=== PATIENT | male | born 1960 | race Caucasian/White ===

== ENCOUNTER → 2017-03-03 | Outpatient (CLI) | payer BC ==
--- NOTE | 2017-03-03 13:49 | PCVCIMAG ---
APPROVED REPORT Exam: Stress Echocardiogram Indication: Hypertension, ABN CA Score, DM, Chest Pressure Stress Nurse: Joann Landers RN Status: routine Ht: 6 ft 6 in HR: 90 bpm BP: 124/74 mmHg Procedure The patient underwent an Exercise Stress Test using the Francis Protocol. Blood pressure, heart rate, and EKG were monitored. An Echocardiogram was performed by physical science technician in four stages in quad fashion. At peak stress, four selected images were obtained and placed side by side with resting images for comparison. Stress Test Details Stress Test: Exercise stress testing was performed using a Francis protocol. HR Resting HR: 90 bpmMax Heart Rate (APMHR): 166 bpm Max HR Achieved: 166 bpmTarget HR (85% APMHR): 141 bpm % of APMHR: 100 HR response to stress: Normal HR response to stress BP Resting BP: 124/74 mmHg Max BP: 202/84 mmHg ECG Resting ECG: Sinus Rhythm Clinical Reason for Termination: Maximal effort Exercise duration: 12 min 0 sec Highest Stage Achieved: Stage 5: 5.0 mph at 18% grade. Exercise capacity: 13.70 METs Overall Exercise Capacity for Age: Normal Pre-Stress Echo The resting Echocardiogram showed normal left ventricular contractility with an estimated Ejection Fraction of about 55-60%. Normal wall motion in all segments on baseline images. Post-Stress Echo The stress Echocardiogram showed normal left ventricular contractility with an estimated Ejection Fraction of about 60-65%. Normal augmentation of wall motion in all segments on post stress images. Clinical No clinical or ECG evidence for ischemia. Conclusion Clinical Response: Non-ischemic Exercise Capacity: Average Stress ECG Response: Non-ischemic Stress Echo Images: Non-ischemic The left ventricle is normal in size and wall thickness in both the rest and stress images. Other Information Study Quality: Adequate <Conclusion> The left ventricle is normal in size and wall thickness in both the rest and stress images.
== END | disposition home or self-care (01) ==
LOC: PCVCIMAG 11:08
PROVIDERS: ATTEND Internal Medicine Cardiovascular Disease
DX: I25.10 Atherosclerotic heart disease of native coronary artery without angina pectoris (principal); I10 Essential (primary) hypertension; R93.1 Abnormal findings on diagnostic imaging of heart and coronary circulation; E11.9 Type 2 diabetes mellitus without complications; E78.00 Pure hypercholesterolemia, unspecified; Z82.49 Family history of ischemic heart disease and other diseases of the circulatory system; Z79.82 Long term (current) use of aspirin
CPT/HCPCS: 93325; 93351

== ENCOUNTER → 2019-04-04 | Outpatient (CLI) | payer BC ==
--- NOTE | 2019-04-04 16:49 | PCVCIMAG ---
APPROVED REPORT Study performed: 04/04/2019 16:01:23 Exam: Stress Echocardiogram Indication: Hypertension, Hyperlipidemia Patient Location: Echo lab Stress Nurse: Wanda Crouch RN Status: routine Ht: 5 ft 8 in HR: 86 bpm BP: 150/88 mmHg Rhythm: NSR Medical History Medical History: Hyperlipidemia, HTN Procedure The patient underwent an Exercise Stress Test using the Francis Protocol. Blood pressure, heart rate, and EKG were monitored. An Echocardiogram was performed by lead slot technician in four stages in quad fashion. At peak stress, four selected images were obtained and placed side by side with resting images for comparison. Stress Test Details Stress Test: Exercise stress testing was performed using a Francis protocol. HR Resting HR: 86 bpmMax Heart Rate (APMHR): 164 bpm Max HR Achieved: 162 bpmTarget HR (85% APMHR): 139 bpm % of APMHR: 98 Recovery HR: 101 bpm HR response to stress: Normal HR response to stress BP Resting BP: 150/88 mmHg Max BP: 162/78 mmHg Recovery BP: 156/76 mmHg BP response to stress: Normal blood pressure response to stress. ECG Resting ECG: Sinus Rhythm Stress ECG: Sinus Rhythm Arrhythmia: VPC's Recovery ECG: Sinus Rhythm Clinical Reason for Termination: Maximal effort Exercise duration: 11 min sec Highest Stage Achieved: Stage 3: 3.4 mph at 14% grade. Exercise capacity: 13.70 METs Overall Exercise Capacity for Age: Normal Pre-Stress Echo The resting Echocardiogram showed normal left ventricular contractility with an estimated Ejection Fraction of about 55-60%. Normal wall motion in all segments on baseline images. Post-Stress Echo The stress Echocardiogram showed normal left ventricular contractility with an estimated Ejection Fraction of about 60-65%. Normal augmentation of wall motion in all segments on post stress images. Clinical No clinical or ECG evidence for ischemia. Conclusion Clinical Response: Non-ischemic Exercise Capacity: Superior Stress ECG Response: Non-ischemic Stress Echo Images: Non-ischemic The left ventricle is normal in size and wall thickness in both the rest and stress images. Trace mitral and tricuspid regurgitation. Other Information Study Quality: Adequate <Conclusion> The left ventricle is normal in size and wall thickness in both the rest and stress images. Trace mitral and tricuspid regurgitation.
== END | disposition home or self-care (01) ==
LOC: PCVCIMAG 15:42
PROVIDERS: ATTEND Internal Medicine Cardiovascular Disease
DX: I36.1 Nonrheumatic tricuspid (valve) insufficiency (principal); I10 Essential (primary) hypertension; E78.5 Hyperlipidemia, unspecified; E11.9 Type 2 diabetes mellitus without complications; R07.9 Chest pain, unspecified; I25.10 Atherosclerotic heart disease of native coronary artery without angina pectoris; E78.00 Pure hypercholesterolemia, unspecified; Z79.4 Long term (current) use of insulin; Z82.49 Family history of ischemic heart disease and other diseases of the circulatory system
CPT/HCPCS: 93325; 93351